=== PATIENT | male | born 1990 | race African-American/Black ===

== ENCOUNTER 2021-03-25 19:31 | Observation (INO) | payer OTHER ==
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
[2021-03-25] MEDS ORDERED: NALOXONE 0.4 MG/ML 1 ML VIAL IV PRN (20:57)
[2021-03-25] MEDS ORDERED: ACETAMINOPHEN TAB 325 MG TAB PO PRN (20:57)
[2021-03-26 14:03] LABS: African American GFR (CKD) >90 (>60 ml/min/1.73 sqM); Albumin 4.2 g/dL (3.5-5.0); Albumin/Globulin Ratio 0.8; Alkaline Phosphatase 144 U/L (38-126); Anion Gap 9 mmol/L; Blood Urea Nitrogen 13 mg/dL (9-20); Calcium 8.9 mg/dL (8.4-10.2); Carbon Dioxide 24 mmol/L (22-30); Chloride 108 mmol/L (98-107); Globulin 5.2 g/dL; Glucose 120 mg/dL (74-99); Non-African American GFR(CKD) >90 (>60 ml/min/1.73 sqM); Potassium 4.2 mmol/L (3.5-5.1); Sodium 141 mmol/L (137-145); Total Bilirubin 0.7 mg/dL (0.2-1.3); Total Protein 9.4 g/dL (6.3-8.2)
[2021-03-26 14:11] LABS: ALT 916 U/L (4-49); AST 827 U/L (17-59)
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
[2021-03-26] MEDS ORDERED: IBUPROFEN 800 MG TAB PO PRN (16:21)
[2021-03-26] MEDS ORDERED: LORATADINE 10 MG TAB PO PRN (16:21)
[2021-03-26] MEDS ORDERED: ALBUTEROL NEBULIZED 2.5 MG/3 ML INHALATION PRN (16:21)
[2021-03-26] MEDS ORDERED: HYDROQUINONE TOPICAL PRN (16:21)
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
[2021-03-26] MEDS: PRAZOSIN 1 MG CAP PO SCH (21:03)
[2021-03-26] MEDS: MIRTAZAPINE 15 MG TAB PO SCH (21:03)
[2021-03-26] MEDS: AZITHROMYCIN 250 MG TAB PO SCH (23:12)
--- NOTE | 2021-03-27 06:29 | CONS ---
CONSULTATION DATE OF SERVICE: 03/26/2021 REASON FOR CONSULTATION: 1. HIV. 2. Pneumonia. HISTORY OF PRESENT ILLNESS: The patient is a 30-year-old male with a past medical history significant for HIV for which the patient is currently on Biktarvy which he has been taking for the last few months. The patient presented to [facility] for evaluation of body aches, fever, and nonproductive cough. The patient's symptoms started the day of presentation to the hospital. The patient denies having significant URI symptoms. No headache. The patient denies any chest pain. Did have a cough of moderate intensity with occasional clear sputum. No hemoptysis. Denies any nausea, no vomiting. No abdominal pain. No diarrhea. With these symptoms, the patient has been evaluated at the [facility]. Apparently the patient did have a COVID test which came back negative. The patient did have a chest x-ray that suggested pneumonia. Also has elevated liver enzymes. The patient received a dose of Rocephin and Zithromax at that facility and subsequently was transferred to [facility] for further evaluation. At this facility, the patient did have chest x-ray with mild hazy opacity on the right site. Infectious Disease was consulted for management of his antibiotic therapy. REVIEW OF SYSTEMS: Positive points have been mentioned in HPI. Rest of systems are negative. PAST MEDICAL HISTORY: HIV, asthma, hypertension. PAST SURGICAL HISTORY: left arm. SOCIAL HISTORY: Remote history of smoking. History of heavy drinking, as well as marijuana use. ALLERGIES: No known drug allergies. MEDICATIONS: The patient is currently on Tylenol, Norvasc, Lovenox, Motrin, Claritin, Cozaar, Remeron, Narcan, Zoloft. PHYSICAL EXAMINATION: VITAL SIGNS: Blood pressure 133/74 with a pulse of 69, temperature 98.5, he is 99% on room air. GENERAL DESCRIPTION: Patient is a middle-aged male lying in bed in no distress. HEENT: Examination shows no pallor or scleral icterus. Oral mucous membrane is dry. NECK: Trachea central, no thyromegaly. LUNGS: Unlabored breathing, decreased intensity of breath sounds. No wheeze. HEART: S1-S2, regular rate and rhythm. ABDOMEN: Soft, no tenderness. No guarding or rigidity. EXTREMITIES: No edema of the feet. SKIN: No rash or mass palpable. NEUROLOGICAL: Patient is awake, alert, oriented times three. Mood and affect normal. LABS: Normal white count at [facility]. No lymphopenia. BUN of 13, creatinine 0.80. AST is 827, ALT 917, bilirubin 0.7. Chest x-ray with right-sided infiltrate. DIAGNOSTIC IMPRESSION: 1. Patient admitted to the hospital with fever, body aches concerning for pneumonia, possible community-acquired. COVID test came back negative. 2. Patient elevated liver exams, concern for possible hepatobiliary disease versus related to his Biktarvy. PLAN: 1. We will hold on the Biktarvy while inpatient and monitor his liver enzymes closely. 2. Obtain ultrasound of the gallbladder area as well as hepatitis panel. 3. Obtain sputum for Gram stain and culture, procalcitonin level and check urine for Legionella antigen. 4. We will keep the patient on Rocephin 1 g daily, Zithromax while waiting for the culture and workup to finalize. 5. We will follow on clinical condition and recent investigations to further adjust medication if needed. Thank you for this consultation. Will follow this patient along with you. MMODL / IJN: [id number] /
--- NOTE | 2021-03-27 09:07 | US ---
EXAMINATION TYPE: US gallbladder DATE OF EXAM: 03/27/2021 COMPARISON: Please compared to 03/25/2021 CLINICAL HISTORY: elevated liver enzymes. EXAM MEASUREMENTS: Liver Length: 13.9 cm Gallbladder Wall: 0.2 cm CBD: Obscured by overlying bowel gas, and obesity Right Kidney: 12.9 x 4.3 x 4.8 cm Morbidly obese patient. Non-diagnostic study Pancreas: Obscured by bowel gas Liver: unable to penetrate, very limited visualization. Probable diffuse fatty infiltration. Gallbladder: very limited visualization, possible sludge seen LLD Evidence for sonographic Frankel's sign: no CBD: Obscured by overlying bowel gas, and obesity Right Kidney: limited visualization, possible mild hydronephrosis IMPRESSION: 1. This study is not diagnostic. Severely limited study due to patient's large body habitus and overl [place] bowel gas. Please compared to CT abdomen and pelvis 03/25/2021.
[2021-03-27] MEDS: LOSARTAN 50 MG TAB PO SCH (09:29)
[2021-03-27] MEDS: SERTRALINE 100 MG TAB PO SCH (09:30)
[2021-03-27] MEDS: ENOXAPARIN 40 MG/0.4 ML SYRINGE SQ SCH (09:30)
[2021-03-27] MEDS: amLODIPine 5 MG TAB PO SCH (09:30)
[2021-03-27 10:39] LABS: Basophils # (A) 0.04 X 10*3/uL (0.00-0.10); Basophils % (A) 0.8 %; Eosinophils # (A) 0.14 X 10*3/uL (0.04-0.35); Eosinophils % (A) 2.9 %; HCT 40.1 % (39.6-50.0); HGB 12.8 g/dL (13.0-17.0); Lymphocytes % (A) 41.8 %; MCH 30.3 pg (27.0-32.0); MCHC 31.9 g/dL (32.0-37.0); Mean Platelet Volume 10.6 fL (9.5-12.2); Monocytes # (A) 0.65 X 10*3/uL (0.20-1.00); Monocytes % (A) 13.6 %; Neutrophils # (A) 1.92 X 10*3/uL (1.80-7.70); Neutrophils % (A) 40.3 %; Platelet Count 253 X 10*3/uL (140-440); RBC 4.22 X 10*6/uL (4.40-5.60); RDW 15.2 % (11.5-14.5); WBC 4.78 X 10*3/uL (4.50-10.00)
[2021-03-27 11:18] LABS: African American GFR (CKD) 138.9 (60.0-200.0); Albumin 3.7 g/dL (3.80-4.90); Albumin/Globulin Ratio 0.74 (1.60-3.17); Anion Gap 6.9 mmol/L (4.00-12.00); BUN/Creat Ratio 18.75 Ratio (12.00-20.00); Calcium 8.8 mg/dL (8.7-10.3); Carbon Dioxide 23.1 mmol/L (21.6-31.8); Non-African American GFR(CKD) 119.9 (60.0-200.0); Potassium 5.3 mmol/L (3.5-5.5); Total Bilirubin 0.5 mg/dL (0.3-1.2); Total Protein 8.7 g/dL (6.2-8.2)
[2021-03-27 15:00] VITALS: RESP 19
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
[2021-03-27 15:33] LABS: Hepatitis A Antibody IgM Non-Reactive (Non-Reactive); Hepatitis B Core IgM Non-Reactive (Non-Reactive); Hepatitis B Surface Antigen Non-Reactive (Non-Reactive); Hepatitis C IgG Antibody Non-Reactive (Non-Reactive); Procalcitonin 0.54 ng/mL (0.02-0.09)
[2021-03-27] MEDS ORDERED: IMIQUIMOD TOPICAL SCH (16:21)
[2021-03-27] MEDS: MIRTAZAPINE 15 MG TAB PO SCH (21:08)
[2021-03-27] MEDS: PRAZOSIN 1 MG CAP PO SCH (21:08)
[2021-03-27] MEDS: AZITHROMYCIN 250 MG TAB PO SCH (21:08)
--- NOTE | 2021-03-27 22:37 | PN ---
PROGRESS NOTE DATE OF SERVICE: 03/27/2021 REASON FOR FOLLOWUP: 1. HIV. 2. Pneumonia. INTERVAL HISTORY: The patient is currently afebrile. The patient is breathing comfortably. The patient denies having any chest pain or shortness of breath. He did have a cough with occasional sputum. No abdominal pain or diarrhea. PHYSICAL EXAMINATION: Blood pressure 114/88 with a pulse of 72, temperature 98. He is 100% on room air. General description is a middle-aged male lying in bed in no distress. RESPIRATORY SYSTEM: Unlabored breathing. Clear to auscultation anteriorly. HEART: S1, S2. Regular rate and rhythm. ABDOMEN: Soft. No tenderness. LABS: Hemoglobin is 12.8, white count 4.7 with a BUN of 15, creatinine 0.8. Liver enzymes have improved. Hepatitis panel has been negative. Urine for Legionella is negative. Sputum was requested but not done. DIAGNOSTIC IMPRESSION AND PLAN: 1. Patient admitted to hospital with fever, rigor and chills with concern for possible pneumonia, community-acquired, covered with Rocephin and Zithromax, and continues to improve. Finish therapy with a short course of oral Ceftin. 2. Patient with elevated white count, elevated liver enzymes, questionably drug- related. His Biktarvy has been put on hold. Once his liver enzymes normalize, may restart it in the outpatient setting. Continue with supportive care. MMODL / IJN: [id number] /
[2021-03-28 06:57] LABS: Sodium 139 mmol/L (137-145)
[2021-03-28 06:58] LABS: African American GFR (CKD) >90 (>60 ml/min/1.73 sqM); Alkaline Phosphatase 198 U/L (38-126); Anion Gap 16 mmol/L; Blood Urea Nitrogen 16 mg/dL (9-20); Calcium 8.8 mg/dL (8.4-10.2); Carbon Dioxide 23 mmol/L (22-30); Chloride 100 mmol/L (98-107); Glucose 104 mg/dL (74-99); Non-African American GFR(CKD) >90 (>60 ml/min/1.73 sqM)
[2021-03-28 07:07] LABS: ALT 819 U/L (4-49); AST 679 U/L (17-59)
[2021-03-28] MEDS: LOSARTAN 50 MG TAB PO SCH (08:37)
[2021-03-28] MEDS: amLODIPine 5 MG TAB PO SCH (08:37)
[2021-03-28] MEDS: ENOXAPARIN 40 MG/0.4 ML SYRINGE SQ SCH (08:37)
[2021-03-28] MEDS: SERTRALINE 100 MG TAB PO SCH (08:37)
[2021-03-28 08:57] VITALS: BP 131/79; PULSE 62; TEMP 97.8
[2021-03-28 12:30] LABS: T4/T8 Ratio (CD4:CD8) 0.2 (1.0-3.7)
[2021-03-28 13:02] LABS: HIV-1 RNA Not detected (Not detected); HIV-1 RNA, Quant <40 Copies/mL (<40)
--- NOTE | 2021-03-28 14:49 | PN ---
PROGRESS NOTE DATE OF SERVICE: 03/28/2021 REASON FOR FOLLOWUP: 1. Pneumonia. 2. Elevated liver enzymes and HIV. INTERVAL HISTORY: The patient is currently afebrile. Patient is breathing comfortably. The patient denies having any chest pain or shortness of breath. Occasional cough, dry in nature. No abdominal pain, no diarrhea. PHYSICAL EXAMINATION: Blood pressure 131/79, pulse of 62, temperature 97.8. He is 99% on room air. General description is an in a middle-aged male lying in bed in no distress. RESPIRATORY SYSTEM: Unlabored breathing, clear to auscultation anteriorly. HEART: S1, S2. Regular rate and rhythm. ABDOMEN: Soft, no tenderness. LABS: Liver enzymes slightly elevated today. DIAGNOSTIC IMPRESSION AND PLAN: 1. Patient admitted to the hospital with fever, rigors and chills, cough and body aches with concern for pneumonia possible community-acquired overall improvement on the Rocephin and Zithromax to finish with a short course of oral Ceftin. 2. The patient with elevated liver enzymes which raises concern for possibly related to the Biktarvy has been put on hold. Liver enzymes still elevated though and came back negative. Ultrasound was negative for any abnormality. Will recommend holding his Biktarvy for another 2 weeks, repeating blood work in 2 weeks and I will reevaluate the patient in the office. Continue supportive care. MMODL / PARASN: [id number] /
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
== END 2021-03-28 15:06 ==
LOC: EC 19:31 → 4SSUR 21:28
PROVIDERS: ADMIT Hospitalist; ATTEND Hospitalist
DX: J18.9 Pneumonia, unspecified organism (principal); Z21 Asymptomatic human immunodeficiency virus [HIV] infection status; R74.8 Abnormal levels of other serum enzymes; Z20.822 Contact with and (suspected) exposure to COVID-19; I10 Essential (primary) hypertension; J45.909 Unspecified asthma, uncomplicated; F32.9 Major depressive disorder, single episode, unspecified; Z79.899 Other long term (current) drug therapy; Z87.891 Personal history of nicotine dependence; Z87.828 Personal history of other (healed) physical injury and trauma; Z86.59 Personal history of other mental and behavioral disorders
CPT/HCPCS: 96365; 96366; 96372 ×2; 99285; 87536; 80053 ×2; 80048; 80074; 87449; 86360; 84075; 84450; 84460; 85025; 86140; 84145 ×2; 71046; 76705; G0378 ×4; J1650 ×2; J0696 ×2